=== PATIENT | female | born 1990 | race Caucasian/White ===

== ENCOUNTER → 2019-12-22 12:52 | Outpatient (CLI) | payer OTHER, SELFPAY ==
--- NOTE | ~2019-12-22 | US_ITS ---
EXAMINATION: US pelvic complete w TV DATE: 12/22/2019 13:30 INDICATION: Excessive and frequent menstruation with irregular cycles. TECHNIQUE: Multiple transabdominal and endovaginal sonographic images of the pelvis were obtained. COMPARISON: None. FINDINGS: The uterus measures 8.6 x 3.5 x 5.1 cm. The endometrial complex measures 12 mm in thickness. The rig ht ovary measures 2.1 x 2.5 x 2.3 cm. There is a 1.2 x 1.1 x 1.2 cm hyperechoic region in the right o vary. The left ovary measures 2.6 x 2.1 x 2.6 cm. There is normal vascular flow in the ovaries. There is no free fluid in the pelvis. IMPRESSION: 1. Nonspecific 1.2 cm hyperechoic region within the right ovary which could represent either fat with in a dermoid, hemorrhagic cyst, endometrioma or solid neoplasm. Recommend further evaluation with pre and postcontrast MRI. Reviewed, dictated and finalized at location B. IMPRESSION: 1. Nonspecific 1.2 cm hyperechoic region within the right ovary which could rep resent either fat within a dermoid, hemorrhagic cyst, endometrioma or solid jayashree plasm. Recommend further evaluation with pre and postcontrast MRI.
== END ==
PROVIDERS: PCP Nurse Practitioner Family; Visit Provider Obstetrics & Gynecology
DX: N92.0 Excessive and frequent menstruation with regular cycle (principal); R10.2 Pelvic and perineal pain; R93.89 Abnormal findings on diagnostic imaging of other specified body structures
CPT/HCPCS: 76830; 76856

== ENCOUNTER → 2020-03-23 14:31 | Outpatient (CLI) | payer OTHER, SELFPAY ==
--- NOTE | ~2020-03-23 | US_ITS ---
EXAMINATION: US pelvic complete w TV DATE: 03/23/2020 15:30 INDICATION: Follow-up right ovarian mass Comparison:12/22/2019 TECHNIQUE: Multiple transabdominal and endovaginal sonographic images of the pelvis performed. FINDINGS: The uterus measures 8 x 3.6 x 4.5 cm. The endometrial complex measures 5.5 mm. The right ovary measures 2.3 x 2.6 x 2.1 cm and the left ovary measures 2.2 x 1.8 x 1.9 cm. There ar e small follicles in each ovary. There is a hyperechoic mass of the right ovary measuring 1.5 x 1.1 x 1.3 cm without significant interval change allowing for differences of technique. There is no free fluid in the pelvis. There are no abnormal masses seen on either side. IMPRESSION: 1. Persistent 1.5 cm hyperechoic right ovarian mass without significant interval change. Differential diagnosis includes dermoid, endometrioma and solid neoplasm. Hemorrhagic cyst less favored given the lack of interval change. Recommend further evaluation with pre and postcontrast MRI. Reviewed, dictated and finalized at location B. 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 Persistent 1.5 cm hyperechoic right ovarian mass without significant interva l change. Differential diagnosis includes dermoid, endometrioma and solid neopl asm. Hemorrhagic cyst less favored given the lack of interval change. Recommend further evaluation with pre and postcontrast MRI.
== END ==
PROVIDERS: PCP Nurse Practitioner Family; Visit Provider Obstetrics & Gynecology
DX: N83.201 Unspecified ovarian cyst, right side (principal)
CPT/HCPCS: 76830; 76856

== ENCOUNTER → 2020-07-28 12:55 | Outpatient (CLI) | payer OTHER, SELFPAY ==
--- NOTE | ~2020-07-28 | US_ITS ---
EXAMINATION: US pelvic complete w TV DATE: 07/28/2020 13:32 INDICATION: Right ovarian cyst TECHNIQUE: Multiple transabdominal and endovaginal sonographic images of the pelvis were obtained. COMPARISON: 03/23/2020, 12/22/2019 FINDINGS: The uterus measures 8.4 x 3.6 x 4.3 cm. The endometrial complex measures 7 mm. The right ov sergio measures 2.4 x 2.5 x 2 cm. There is a stable 1.4 cm hyperechoic lesion of the right ovary. The le ft ovary measures 2.7 x 2.2 x 2.2 cm. There is normal vascular flow in the ovaries. There is no free fluid in the pelvis. IMPRESSION: 1. Stable hyperechoic lesion of the right ovary. Differential is as previously described including de rmoid, endometrioma, hemorrhagic cyst, or possibly solid neoplasm. Further evaluation by MRI without and with contrast or continued ultrasound follow-up are recommended. Reviewed, dictated and finalized at location A. IMPRESSION: 1. Stable hyperechoic lesion of the right ovary. Differential is as previously described including dermoid, endometrioma, hemorrhagic cyst, or possibly solid neoplasm. Further evaluation by MRI without and with contrast or continued ultr asound follow-up are recommended.
== END ==
PROVIDERS: Visit Provider Obstetrics & Gynecology
DX: N83.209 Unspecified ovarian cyst, unspecified side (principal)
CPT/HCPCS: 76830; 76856

== ENCOUNTER → 2020-08-09 08:44 | Outpatient (CLI) | payer OTHER, SELFPAY ==
[2020-08-09 18:26] LABS: SARS-CoV-2 RNA PCR Negative
== END ==
PROVIDERS: PCP Nurse Practitioner Family; Visit Provider Nurse Practitioner Family
DX: Z20.822 Contact with and (suspected) exposure to COVID-19 (principal); R50.9 Fever, unspecified
CPT/HCPCS: C9803; U0003; U0005

== ENCOUNTER → 2021-04-20 11:04 | Outpatient (CLI) | payer OTHER, SELFPAY ==
[2021-04-21 16:52] LABS: SARS-CoV-2 RNA PCR Positive
== END ==
PROVIDERS: PCP Nurse Practitioner Family; Visit Provider Pediatrics
DX: U07.1 COVID-19 (principal)
CPT/HCPCS: C9803; U0003; U0005

== ENCOUNTER → 2021-08-04 07:22 | Outpatient (CLI) | payer OTHER, SELFPAY ==
--- NOTE | ~2021-08-04 | US_ITS ---
EXAMINATION: US pelvic complete w TV DATE: 08/04/2021 07:57 INDICATION: Benign neoplasm, unspecified site. TECHNIQUE: Multiple transabdominal and transvaginal sonographic images of the pelvis were obtained. COMPARISON: Ultrasound pelvis 07/28/2020, 12/22/2019, 01/10/16 FINDINGS: TRANSABDOMINAL ULTRASOUND: The uterus measures 8.9 x 3.9 x 5.4 cm. There is no free fluid in the pelvis. TRANSVAGINAL ULTRASOUND: The endometrial complex measures 9 mm in thickness. The right ovary measures 2.8 x 2.4 x 3.1 cm. Ther e is a 1.2 cm hyperechoic mass in right ovary. The left ovary measures 2.6 x 2.2 x 2.9 cm. There is n ormal vascular flow in the ovaries. IMPRESSION: 1. 1.2 cm hyperechoic mass in right ovary, stable from 12/22/2019 and new from 01/10/2016. The different ial diagnosis includes dermoid, endometrioma, and hemorrhagic cyst. Reviewed, dictated and finalized at location A. IMPRESSION: 1. 1.2 cm hyperechoic mass in right ovary, stable from 12/22/2019 and new from . The differential diagnosis includes dermoid, endometrioma, and hemorrh agic cyst.
== END ==
PROVIDERS: Visit Provider Obstetrics & Gynecology
DX: D36.9 Benign neoplasm, unspecified site (principal)
CPT/HCPCS: 76830; 76856

== ENCOUNTER → 2021-12-14 16:26 | Outpatient (CLI) | payer OTHER, SELFPAY ==
--- NOTE | ~2021-12-14 | XR_ITS ---
EXAMINATION: XR chest 2V DATE: 12/14/2021 17:37 INDICATION: Cough, chest tightness and shortness of breath TECHNIQUE: frontal and lateral views of the chest were obtained. COMPARISON: None FINDINGS: The lungs are clear with no focal airspace opacities, pulmonary edema, pleural effusion or pneumothor ax. The cardiomediastinal silhouette is normal. Mild thoracic spondylosis. IMPRESSION: 1. No acute cardiopulmonary disease. Reviewed, dictated and finalized at location A.
== END ==
PROVIDERS: PCP Nurse Practitioner Family; Visit Provider Nurse Practitioner Family
DX: R05.9 Cough, unspecified (principal)
CPT/HCPCS: 71046

== ENCOUNTER → 2022-10-19 07:21 | Outpatient (CLI) | payer OTHER, SELFPAY ==
--- NOTE | ~2022-10-19 | US_ITS ---
Pelvic ultrasound. Clinical History: Benign neoplasm of ovary Technique: Realtime transabdominal and transvaginal scanning of the pelvis was performed. Color flow Doppler and Doppler spectral analysis were performed. COMPARISON: 08/04/2021 Findings: The uterus is anteverted. The endometrial stripe has a thickness of 5 mm. No focal mass is identified. The right ovary measures 1.8 x 2.5 x 2.4 cm. Probable small ill-defined echogenic lesion in the right ovary, similar to prior exam. The left ovary measures 2.1 x 2.0 x 1.8 cm. No significant left ovarian or adnexal mass is seen. There is no evidence of free fluid in the cul de sac. Impression: Probable small right ovarian dermoid, similar to prior exam. Reviewed, dictated and finalized at [facility]. Impression: Probable small right ovarian dermoid, similar to prior exam.
== END ==
PROVIDERS: PCP Obstetrics & Gynecology; Visit Provider Obstetrics & Gynecology
DX: D27.9 Benign neoplasm of unspecified ovary (principal)
CPT/HCPCS: 76830; 76856

== ENCOUNTER 2024-02-07 08:43 | Outpatient (CLI) | payer OTHER, SELFPAY ==
--- NOTE | ~2024-02-07 | US_ITS ---
EXAMINATION: US pelvic complete w TV INDICATION: Benign neoplasm Comparison: Comparison to multiple prior studies sequentially, with oldest reviewed study dated 12/2020. TECHNIQUE: Multiple transabdominal and endovaginal sonographic images of the pelvis performed. FINDINGS: The uterus measures 8.6 x 3.6 x 4.7 cm. The endometrial complex measures 10 mm. The right ovary measures 2.6 x 3.4 x 2.3 cm and the left ovary measures 2.4 x 1.8 x 1.9 cm.. There is a heterogeneous hyperechoic mass of the right ovary measuring 1.8 x 1.7 x 1.6 cm. No internal vascul arity. Normal doppler signal in both ovaries. There is no free fluid in the pelvis. There are no abnormal masses seen on either side. IMPRESSION: 1. Heterogeneous enlarging hyperechoic 1.8 cm right ovarian mass, likely a dermoid. Reviewed, dictated and finalized at location B. IMPRESSION: 1. Heterogeneous enlarging hyperechoic 1.8 cm right ovarian mass, likely a derm oid.
== END 2024-02-07 08:44 | disposition home or self-care (01) ==
LOC: MICIMG 08:44
PROVIDERS: PCP Obstetrics & Gynecology; Visit Provider Obstetrics & Gynecology
DX: D36.9 Benign neoplasm, unspecified site (principal)
CPT/HCPCS: 76830; 76856

== ENCOUNTER 2025-02-18 14:59 | Outpatient (CLI) | payer OTHER, SELFPAY ==
--- NOTE | ~2025-02-18 | US_ITS ---
EXAMINATION: US pelvic complete w TV, 02/18/2025 15:01 CDT HISTORY: N83.209 - Unspecified ovarian cyst, unspecified side Comparison: Comparison 02/07/2024. Technique: Mcrae-scale and color Doppler images were obtained. Findings: Uterus: Uterus anteverted 8.5 x 4.3 x 5.3 cm. . Endometrium 7 mm. Right Ovary:Right ovary 3.9 x 3.2 x 3.4 cm, there is a solid-appearing lesion 2.2 x 2.3 cm. Left Ovary: Left ovary 2.9 x 2.2 x 2.3 cm, no adnexal mass, normal flow. Free Fluid: None Impression: Complex solid appearing right ovarian lesion incompletely evaluated possible dermoid. This is increased compared to the previous study.Contrast-enhanced MRI is recommended Reviewed, dictated and finalized at location P. Impression: Complex solid appearing right ovarian lesion incompletely evaluated possible de rmoid. This is increased compared to the previous study.Contrast-enhanced MRI i s recommended
== END 2025-02-18 15:00 | disposition home or self-care (01) ==
LOC: MICIMG 14:59
PROVIDERS: PCP Nurse Practitioner Obstetrics & Gynecology; Visit Provider Nurse Practitioner Obstetrics & Gynecology
DX: N83.209 Unspecified ovarian cyst, unspecified side (principal)
CPT/HCPCS: 76830; 76856